=== PATIENT | female | born 2000 | race Hispanic/Latino ===

== ENCOUNTER 2024-02-15 13:47 | Emergency (ER) | payer MEDICAID ==
[~2024-02-15 13:47] MED LIST: Iopamidol 370 76% 100 ML VIAL ONE
[2024-02-15] MEDS ORDERED: Acetaminophen 500 MG TAB ONE (14:33)
[2024-02-15] MEDS ORDERED: Morphine 4 MG/ML VIAL ONE (14:34)
[2024-02-15] MEDS ORDERED: Ketorolac Tromethamine 30 MG (1 mL) VIAL ONE (14:34)
[2024-02-15] MEDS ORDERED: Ondansetron PF 4 MG/2 ML Vial ONE (14:34)
[2024-02-15] MEDS ORDERED: Sodium Chloride 0.9% 2,000 ML ONE (14:35)
[2024-02-15 15:01] LABS: #Eosinophils 0.1 thou/uL (0.0-0.7); #Lymphocytes 1.4 thou/uL (1.20-3.40); #Monocytes 0.3 thou/uL (0.11-0.59); #Neutrophils 4.3 thou/uL (1.40-6.50); %Basophils 0.5 % (0.0-1.0); %Eosinophils 0.9 % (0.0-10.0); %Lymphocytes 22.4 % (21.0-51.0); %Monocytes 4.8 % (0.0-10.0); %Neutrophils 71.5 % (42.0-75.0); Hematocrit 44.1 % (36.0-47.0); Hemoglobin 14.5 g/dL (12.0-16.0); Mean Corpuscular HGB CONC 32.8 g/dL (32.0-36.0); Mean Corpuscular Hemoglobin 27.3 pg (27.0-31.0); Mean Corpuscular Volume 83.3 fl (78.0-98.0); Mean Platelet Volume 7.1 fL (7.4-10.4); Platelet Count 328 10x3/uL (130-400); RBC Distribution Width 11.5 % (11.5-14.5)
[2024-02-15 15:09] LABS: Bilirubin Large (Negative); Blood, Urine Negative (Negative); Glucose, Urine (Dipstick) 100 mg/dL (Negative); Ketone, Urine 15 mg/dL (Negative); Leukocyte Negative (Negative); Nitrite Negative (Negative); Protein, Urine (Dipstick) 100 mg/dL (Neg-Trace)
[2024-02-15 15:11] LABS: Clarity Hazy (Clear)
[2024-02-15 15:12] LABS: INR-International Normal Ratio 0.9; PTT 28.2 sec (22.9-36.1); Prothrombin Time 12.5 sec (12.0-14.7)
[2024-02-15 15:12] LABS: Pregnancy Test - Urine (BHCG) Negative (Negative); Pregu Control Background? CLEAR/WHITE (CLR/WHITE); Pregu Control Bar Appear? YES (CONTROL BAR)
[2024-02-15 15:16] LABS: Bacteria/HPF 1+ HPF (None Seen); CAUTI Indications for Culture Pelvic or flank pain; WBC/HPF 0-3 HPF (0-3)
[2024-02-15 15:17] LABS: Urine Culture Reflex No No
[2024-02-15 15:21] LABS: ALT (SGPT) 1115 U/L (8-55); AST (SGOT) 623 U/L (5-34); Albumin 4.5 g/dL (3.5-5.0); Alkaline Phosphatase 189 U/L (40-110); Anion Gap 16 mmol/L (10-20); BUN (Urea Nitrogen) 17 mg/dL (7.0-18.7); Bilirubin, Total 5.9 mg/dL (0.2-1.2); Calc. Creatinine Clearance 0 mL/min (70-130); Calcium 10.4 mg/dL (7.8-10.44); Carbon Dioxide 28 mmol/L (22-29); Chloride 101 mmol/L (98-107); Estimated GFR 109; Globulin 3.9 g/dL (2.4-3.5); Glucose 113 mg/dL (70-105); Lipase 24 U/L (8-78); Potassium 3.7 mmol/L (3.5-5.1); Protein, Total 8.4 g/dL (6.0-8.3); Sodium 141 mmol/L (136-145)
[2024-02-15] MEDS ORDERED: Piperacillin/Tazobactam 3.375 GM VIAL ONE (18:12)
[2024-02-15] MEDS ORDERED: Sodium Chloride 0.9% 100 ML ONE (18:12)
== END 2024-02-15 22:45 | disposition short-term general hospital (02) ==
LOC: NAV ERS 13:47
DX: K80.40 Calculus of bile duct with cholecystitis, unspecified, without obstruction (principal); R65.10 Systemic inflammatory response syndrome (SIRS) of non-infectious origin without acute organ dysfunction; E80.6 Other disorders of bilirubin metabolism
CPT/HCPCS: 74177; 80053; 81001; 81025; 83605; 83690; 85025; 85610; 85730; 96365; 96375; J1885; J2272; J2405; J2543; J7030; Q9967